=== PATIENT | female | born 1975 | race Caucasian/White ===

== ENCOUNTER 2022-02-20 20:59 | Emergency (ER) | payer OTHER ==
--- NOTE | 2022-02-20 21:02 | ERPHSYRPT ---
- History of Present Illness Time Seen by Provider: 02/20/22 21:02 Historian: patient Exam Limitations: no limitations Physician History: This is an obese 46-year-old white female who has known cholelithiasis and presents with right lateral abdomen and right upper quadrant pressure that was worsening over the last week. She has changed her diet and does feel more bloa verónica belching gassy. There is a family history of cholelithiasis that is symptomatic and they had undergone a cholecystectomy. Patient denies chest pain. She denies shortness of breath. She has had no nausea vomiting or diarrhea. Timing/Duration: day(s) (Several days) Activities at Onset: none Quality: pressure Abdominal Pain Onset Location: RUQ Pain Radiation: no radiation Severity of Pain-Max: mild Severity of Pain-Current: none Modifying Factors: Improves With: nothing Associated Symptoms: denies symptoms Previous symptoms: same symptoms as today, no recent treatment Allergies/Adverse Reactions: No Known Drug Allergies Allergy (Verified 02/20/22 21:09) Home Medications: Fluticasone Propionate [Flonase NASAL] 1 spray INTRANASAL DAILY 02/20/22 [History] Lisinopril 10 mg [Zestril 10 MG] 1 tab PO DAILY 02/20/22 [History] Loratadine 10 mg [Claritin 10 mg] 1 tab PO DAILY 02/20/22 [History] Travel Risk - International Travel Have you traveled outside of the country in past 3 weeks: No - Coronavirus Screening Are you exhibiting any of the following symptoms?: No Close contact with a COVID-19 positive Pt in past 14-21 Days: No - Review of Systems Constitutional: No Symptoms Eyes: No Symptoms Ears, Nose, & Throat: No Symptoms Respiratory: No Symptoms Cardiac: No Symptoms Abdominal/Gastrointestinal: Abdominal Pain (Described as a pressure that it has now resolved. Location is right upper quadrant and right lateral abdomen), Other (Bloated belching gassy), No Nausea, No Vomiting, No Diarrhea Genitourinary Symptoms: No Symptoms Musculoskeletal: No Symptoms Skin: No Symptoms Neurological: No Symptoms Psychological: No Symptoms Endocrine: No Symptoms Hematologic/Lymphatic: No Symptoms Immunological/Allergic: No Symptoms All Other Systems: Reviewed and Negative - Past Medical History Pertinent Past Medical History: Yes - Past Surgical History Past Surgical History: Yes Gastrointestinal: Appendectomy - Nursing Vital Signs Nursing Vital Signs: Initial Vital Signs Temperature 98.4 F 02/20/22 21:14 Pulse Rate 94 H 02/20/22 21:14 Respiratory Rate 20 02/20/22 21:14 Blood Pressure 176/98 02/20/22 21:14 O2 Sat by Pulse Oximetry 100 02/20/22 21:14 Pain Scale Pain Intensity [Right lower 0 back] Pain Intensity 0 - Physical Exam General Appearance: no apparent distress, alert, anxiety, obese Eye Exam: PERRL/EOMI, eyes nml inspection Ears, Nose, Throat Exam: normal ENT inspection, moist mucous membranes Neck Exam: normal inspection, non-tender, supple, full range of motion Respiratory Exam: normal breath sounds, lungs clear, airway intact, No chest tenderness, No respiratory distress Cardiovascular Exam: regular rate/rhythm, normal heart sounds, normal peripheral pulses Gastrointestinal/Abdomen Exam: soft, normal bowel sounds, tenderness (Described as a pressure right lateral abdomen and right upper quadrant), No guarding, No rebound Pelvic Exam: not done Rectal Exam: not done Back Exam: normal inspection, normal range of motion, No CVA tenderness, No vertebral tenderness Extremity Exam: normal inspection, normal range of motion, pelvis stable Neurologic Exam: alert, oriented x 3, cooperative, 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, normal mood/affect, nml cerebellar function, nml station & gait, sensation nml Skin Exam: normal color, warm, dry Lymphatic Exam: No adenopathy SpO2 Interpretation: normal O2 Delivery: Room Air - Course Nursing assessment & vital signs reviewed: Yes Ordered Tests: Active Orders 24 hr Category Date Time Status IV Insertion STAT Care 02/20/22 21:35 Active ABDOMEN AND PELVIS W/0 CONTRAS [CT] Stat Exams 02/20/22 21:34 Taken AMYLASE Stat Lab 02/20/22 21:52 Completed CBC W DIFF Stat Lab 02/20/22 21:33 Completed CMP Stat Lab 02/20/22 21:52 Completed CULTURE,URINE Stat Lab 02/20/22 21:35 Received LIPASE Stat Lab 02/20/22 21:52 Completed Lactic Acid Stat Lab 02/20/22 21:49 Completed Lab/Rad Data: Laboratory Result Diagrams 02/20/22 21:33 02/20/22 21:52 Laboratory Results 02/20/22 02/20/22 02/20/22 Range/Units 21:52 21:52 21:49 WBC (4.0-10.5) K/mm3 RBC (4.1-5.4) M/mm3 Hgb (12.0-16.0) gm/dl Hct (35-47) % MCV (78-100) fl MCH (26-32) pg MCHC (32-36) g/dl RDW (11.5-14.0) % Plt Count (150-450) K/mm3 MPV (7.5-11.0) fl Gran % (36.0-66.0) % Eos # (Auto) (0-0.5) Absolute Lymphs (auto) (1.0-4.6) Absolute Monos (auto) (0.0-1.3) Lymphocytes % (24.0-44.0) % Monocytes % (0.0-12.0) % Eosinophils % (0.00-5.0) % Basophils % (0.0-0.4) % Absolute Granulocytes (1.4-6.9) Basophils # (0-0.4) Sodium 138 (137-145) mmol/L Potassium 3.7 (3.5-5.1) mmol/L Chloride 100 (98-107) mmol/L Carbon Dioxide 27 (22-30) mmol/L Anion Gap 15.1 H (5-15) MEQ/L BUN 9 (7-17) mg/dL Creatinine 0.69 (0.52-1.04) mg/dL Estimated GFR > 60.0 ML/MIN Glucose 90 (74-106) mg/dL Hemoglobin A1c 5.49 (4.5-6.0) % Lactic Acid 1.0 (0.4-2.0) Calcium 9.9 (8.4-10.2) mg/dL Total Bilirubin 0.90 (0.2-1.3) mg/dL AST 21 (14-36) U/L ALT 26 (0-35) U/L Alkaline Phosphatase 60 (38-126) U/L Serum Total Protein 7.4 (6.3-8.2) g/dL Albumin 4.6 (3.5-5.0) g/dL Amylase 53 (30-110) U/L Lipase 90 (23-300) U/L Urinalys Dipstick Clnc Urine Color (YELLOW) Urine Appearance (CLEAR) Urine pH (5-6) Ur Specific [place] (1.005-1.025) POC Urine Protein Conf (Negative) Urine Ketones (NEGATIVE) Urine Nitrite (NEGATIVE) Urine Bilirubin (NEGATIVE) Urine Urobilinogen (0-1) mg/dL Urine Leukocytes (NEGATIVE) Urine WBC (Auto) (0-5) /HPF Urine RBC (Auto) (0-2) /HPF U Epithel Cells (Auto) (FEW) /HPF Urine Bacteria (Auto) (NEGATIVE) /HPF Urine RBC (0-5) Santos/ul Urine Mucus (Auto) (NEGATIVE) /HPF Ur Culture Indicated? Urine Glucose (NEGATIVE) mg/dL 02/20/22 02/20/22 Range/Units 21:35 21:33 WBC 10.9 H (4.0-10.5) K/mm3 RBC 5.13 (4.1-5.4) M/mm3 Hgb 14.3 (12.0-16.0) gm/dl Hct 43.1 (35-47) % MCV 84.0 (78-100) fl MCH 27.9 (26-32) pg MCHC 33.2 (32-36) g/dl RDW 14.2 H (11.5-14.0) % Plt Count 332 (150-450) K/mm3 MPV 11.8 H (7.5-11.0) fl Gran % 47.0 (36.0-66.0) % Eos # (Auto) 0.33 (0-0.5) Absolute Lymphs (auto) 4.39 (1.0-4.6) Absolute Monos (auto) 1.05 (0.0-1.3) Lymphocytes % 40.1 (24.0-44.0) % Monocytes % 9.6 (0.0-12.0) % Eosinophils % 3.0 (0.00-5.0) % Basophils % 0.3 (0.0-0.4) % Absolute Granulocytes 5.14 (1.4-6.9) Basophils # 0.03 (0-0.4) Sodium (137-145) mmol/L Potassium (3.5-5.1) mmol/L Chloride (98-107) mmol/L Carbon Dioxide (22-30) mmol/L Anion Gap (5-15) MEQ/L BUN (7-17) mg/dL Creatinine (0.52-1.04) mg/dL Estimated GFR ML/MIN Glucose (74-106) mg/dL Hemoglobin A1c (4.5-6.0) % Lactic Acid (0.4-2.0) Calcium (8.4-10.2) mg/dL Total Bilirubin (0.2-1.3) mg/dL AST (14-36) U/L ALT (0-35) U/L Alkaline Phosphatase (38-126) U/L Serum Total Protein (6.3-8.2) g/dL Albumin (3.5-5.0) g/dL Amylase (30-110) U/L Lipase (23-300) U/L Urinalys Dipstick Clnc MAIN LAB Urine Color YELLOW (YELLOW) Urine Appearance SLIGHTLY CLOUDY (CLEAR) Urine pH 5.5 (5-6) Ur Specific [place] 1.015 (1.005-1.025) POC Urine Protein Conf NEGATIVE (Negative) Urine Ketones NEGATIVE (NEGATIVE) Urine Nitrite NEGATIVE (NEGATIVE) Urine Bilirubin NEGATIVE (NEGATIVE) Urine Urobilinogen 0.2 (0-1) mg/dL Urine Leukocytes NEGATIVE (NEGATIVE) Urine WBC (Auto) 0-2 (0-5) /HPF Urine RBC (Auto) 0-2 (0-2) /HPF U Epithel Cells (Auto) FEW (FEW) /HPF Urine Bacteria (Auto) MANY (NEGATIVE) /HPF Urine RBC NEGATIVE (0-5) Santos/ul Urine Mucus (Auto) SLIGHT (NEGATIVE) /HPF Ur Culture Indicated? YES Urine Glucose NEGATIVE (NEGATIVE) mg/dL - Progress Progress: unchanged Progress Note: 02/20/22 23:01 CAT scan of the abdomen pelvis shows 2 cm gallstone with the remaining CAT scan of the abdomen without contrast negative Counseled pt/family regarding: lab results, diagnosis, need for follow-up, rad results - Departure Departure Disposition: Home Clinical Impression: Cholelithiasis Condition: Stable Critical Care Time: No Referrals: JESSA TAYLOR NP [Primary Care Provider] - Follow up/PCP as directed Additional Instructions: Drink plenty of fluids. Avoid fatty, greasy, spicy foods. Follow-up as an outpatient with your primary prescribing provider for further evaluation and management of your gallbladder and gallstones.
[2022-02-20 21:50] LABS: Absolute Neutrophil Ct (ANC) 5.14 (1.4-6.9); Basophil (Absolute #) 0.03 (0-0.4); Eosinophil (Absolute #) 0.33 (0-0.5); Hematocrit 43.1 % (35-47); Hemoglobin 14.3 gm/dl (12.0-16.0); Lymphocyte (Absolute #) 4.39 (1.0-4.6); Lymphocytes % 40.1 % (24.0-44.0); Mean Corpuscular Hemoglobin 27.9 pg (26-32); Mean Corpuscular Hgb Concent. 33.2 g/dl (32-36); Mean Platelet Volume 11.8 fl (7.5-11.0); Monocyte (Absolute #) 1.05 (0.0-1.3); Monocytes % 9.6 % (0.0-12.0); Platelet Count 332 K/mm3 (150-450); Red Blood Count 5.13 M/mm3 (4.1-5.4); Red Cell Distribution Width 14.2 % (11.5-14.0); White Blood Count 10.9 K/mm3 (4.0-10.5)
[2022-02-20 21:56] LABS: Bacteria MANY /HPF (NEGATIVE); Epithelial Cells FEW /HPF (FEW); Mucus SLIGHT /HPF (NEGATIVE); RBC 0-2 /HPF (0-2); WBC 0-2 /HPF (0-5)
[2022-02-20 21:57] LABS: Appearance SLIGHTLY CLOUDY (CLEAR); Bilirubin NEGATIVE (NEGATIVE); Glucose NEGATIVE (NEGATIVE); Ketones NEGATIVE (NEGATIVE); Nitrite NEGATIVE (NEGATIVE); Ph 5.5 (5-6); Protein,Urine Dip NEGATIVE (Negative); RBC NEGATIVE Ery/ul (0-5); Specific Gravity 1.015 (1.005-1.025); Urine Cultured Indicated? YES; Urobilinogen 0.2 mg/dL (0-1)
[2022-02-20 22:02] LABS: ALBUMIN 4.6 g/dL (3.5-5.0); ALKALINE PHOSPHATASE 60 U/L (38-126); AMYLASE 53 U/L (30-110); ANION GAP 15.1 MEQ/L (5-15); BLOOD UREA NITROGEN 9 mg/dL (7-17); CHLORIDE 100 mmol/L (98-107); Calcium 9.9 mg/dL (8.4-10.2); Carbon Dioxide 27 mmol/L (22-30); Creatinine 1 0.69 mg/dL (0.52-1.04); EST GLOMERULAR FILTRATION RATE > 60.0 ML/MIN; Glucose 90 mg/dL (74-106); LIPASE 90 U/L (23-300); Potassium 3.7 mmol/L (3.5-5.1); SGOT/AST 21 U/L (14-36); SGPT/ALT 26 U/L (0-35); SODIUM 138 mmol/L (137-145); Total Protein 7.4 g/dL (6.3-8.2)
[2022-02-20 22:06] LABS: Dipstick done @ ? MAIN LAB
[2022-02-20 23:06] VITALS: BP 166/87; PULSE 84; O2SAT 98
--- NOTE | 2022-02-21 08:55 | XRAY ---
Indication: Right upper quadrant pain. Multiple contiguous axial images obtained through the abdomen and pelvis without contrast. Comparison: None Lung bases clear. Heart not enlarged. Stomach distended with food/fluid. Noncontrasted stomach and bowel loops appear nonobstructed. Appendectomy and hysterectomy reported. No free fluid/air. Gallbladder partially contracted with 2 cm stone. Remaining liver, gallbladder, pancreas, spleen, adrenal glands, kidneys, ureters, bladder, and aorta are unremarkable for noncontrast exam. Osseous structures intact with minimal degenerative changes throughout the spine. No ventral or inguinal hernias. Impression: 1. Gallstone better evaluated with sonogram if clinically warranted. 2. Remaining CT abdomen/pelvis without contrast exam is negative.
== END 2022-02-20 23:17 | disposition home or self-care (01) ==
LOC: ED 20:59
DX: K80.20 Calculus of gallbladder without cholecystitis without obstruction (principal); R10.11 Right upper quadrant pain; Z79.899 Other long term (current) drug therapy
CPT/HCPCS: 36000; 36415; 74176; 80053; 81015; 82150; 83036; 83605; 83690; 85025; 87086; 99284

== ENCOUNTER 2022-03-13 10:07 | Day surgery (SDC) | payer OTHER ==
--- NOTE | 2022-03-13 09:43 | HP ---
DATE OF SURGERY: 03/13/2022 HISTORY OF PRESENT ILLNESS: The patient is a 46-year-old with no change in bowel movements, no jaundice. History of gallstones in the past. She had some chronic cholecystitis and cholelithiasis. The patient did have irritable bowel disease test that was negative for irritable bowel disease in the past. CT scan showed gallbladder contracted with 2 cm stone. PAST MEDICAL HISTORY: Hypertension. PAST SURGICAL HISTORY: Appendectomy. Tubal. Hysterectomy. MEDICATIONS: Lisinopril, Claritin, Flonase. ALLERGIES: NKDA. SOCIAL HISTORY: No smoking or alcohol abuse. REVIEW OF SYSTEMS: Fourteen systems reviewed. No chest pain or palpitations. Other systems negative or noncontributory as above and per preadmission questionnaire. PHYSICAL EXAMINATION: GENERAL: No acute distress. HEENT: Sclerae nonicteric. NECK: No JVD. CHEST: Equal excursion, nonlabored breathing. CVS: Regular rate and rhythm. ABDOMEN: Soft. No peritoneal signs. EXTREMITIES: No significant edema. NEURO: Alert, oriented, moving extremities symmetrically. PSYCH: Appropriate mood and affect. IMPRESSION: Chronic cholecystitis, symptomatic cholelithiasis. I feel the patient will benefit from cholecystectomy. She was shown the gallbladder pamphlet and risk sheet, explained the procedure in detail including but not limited to bleeding or infection, risk of trocar injury or hernia, risk of bowel, bladder or blood vessel injury, risk of bile leak, bile duct injury, retained stone or sludge possibly requiring further procedure either open or ERCP, general risk of anesthesia, deep venous thrombosis, pulmonary embolism, pneumonia, perioperative risk of aches, pains, bloating, constipation and/or loose stools possibly even chronic in nature, general risk of anesthesia or sedation, risk of possible open procedure, possibility this procedure may not improve her symptoms. She may need endoscopy, other studies or procedures. She understands and agrees to the planned procedure, will proceed with laparoscopic cholecystectomy with possible open as an outpatient.
[~2022-03-13 10:07] MED LIST: Lactated Ringers 1,000 ML IV ONE; Lactated Ringers 1,000 ML IV SCH; Sensorcaine 0.25% 10 ML ONE
[2022-03-13] MEDS ORDERED: DEXMEDETOMIDINE 80 MCG/20ML-NS IV ONE (10:08)
[2022-03-13] MEDS ORDERED: Pepcid 20 MG VIAL IV ONE (10:54)
[2022-03-13] MEDS ORDERED: Transderm Scop 1.5MG Patch TOP PRN (10:54)
[2022-03-13] MEDS ORDERED: Reglan 10 MG/2 ML IV ONE (10:54)
[2022-03-13] MEDS ORDERED: Lactated Ringers 1,000 ML IV ONE (10:57)
[2022-03-13] MEDS ORDERED: MEFOXIN 2 GM PREMIX** 2 GM/50 ML ML IV SCH (11:00)
[2022-03-13] MEDS ORDERED: Versed 2 MG/2 ML Injection IV PRN (11:34)
[2022-03-13] MEDS ORDERED: Versed 2 MG/2 ML Injection ONE ×2 (11:35→12:19)
[2022-03-13] MEDS ORDERED: DIPRIVAN 200 MG/20 ML IV ONE (12:19)
[2022-03-13] MEDS ORDERED: Zemuron 100 MG/10 ML ONE ×2 (12:19→13:47)
[2022-03-13] MEDS ORDERED: Decadron 4 MG INJ ONE (12:19)
[2022-03-13] MEDS ORDERED: SUBLIMAZE 100 MCG/2 ML ONE ×3 (12:19→15:12)
[2022-03-13] MEDS ORDERED: Xylocaine-Mpf 2% 5 Ml Vial ONE (12:19)
[2022-03-13] MEDS ORDERED: Zofran 4 MG/2 ML VIAL ONE (12:19)
[2022-03-13] MEDS ORDERED: Quelicin Fliptop 200 MG/10 ML ONE (12:19)
[2022-03-13] MEDS ORDERED: Pre-Attached Lta Kit TP ONE (12:24)
[2022-03-13] MEDS ORDERED: OFIRMEV 100 ML IV ONE (12:25)
[2022-03-13] MEDS ORDERED: NORCO 5/325 MG PO PRN (12:57)
[2022-03-13] MEDS ORDERED: ATROPINE SULFATE 1MG ONE (13:16)
[2022-03-13] MEDS ORDERED: BRIDION 200MG/2ML IV ONE (14:50)
--- NOTE | 2022-03-13 15:28 | OP ---
SURGERY DATE/TIME: 03/13/2022 1232 PREOPERATIVE DIAGNOSIS: Acute exacerbation of chronic cholecystitis, cholelithiasis, obesity. POSTOPERATIVE DIAGNOSIS: Acute exacerbation of chronic cholecystitis, cholelithiasis, obesity. PROCEDURE: Laparoscopic cholecystectomy. SURGEON: Dr. Gadiel Rivera. ANESTHESIA: General. ESTIMATED BLOOD LOSS: Minimal. INDICATIONS: As noted above. Risks and benefits explained in detail but not limited to and consent obtained. DESCRIPTION OF PROCEDURE AND FINDINGS: The patient was taken to the operating room. General anesthesia induced. Abdomen prepped and draped in the usual sterile fashion. After official time out and no disagreement with planned procedure, a transverse incision made at the supraumbilical area. Fascia grasped and pulled upward. Veress needle inserted and tested with saline. Pneumoperitoneum accomplished insufflating opening pressure of 0-15. A 5 mm bladeless port and camera inserted without difficulty followed by two - 5 mm right upper quadrant ports and 11 mm epigastric port was later switched to a 12 mm port. There is no evidence of any intra-abdominal injury secondary to trocar insertion. The gallbladder showed fatty infiltration to the liver and the gallbladder was quite intrahepatic. It was stuck with lobulation. This took quite some time to dissect posterior lateral to anterior fashion. Layer by layer slow, careful safe dissection finally able to obtain a critical view of the infundibular cystic duct junction area this is slowly and carefully well skeletonized until critical view obtained. The artery in this particular patient was more out laterally. Once the critical view was obtained and after first taking the artery directly on the gallbladder wall it is clipped x3 and divided. The infundibular area is carefully dissected free allowing the cystic duct to be well skeletonized and critical view obtained anterior and posteriorly. Once this is accomplished given her inflammatory reaction, it was felt more secure with the EndoGIA stapler vascular load was carefully angulated and fired across at the junction at the infundibular cystic duct area. The patient had a very large stone in the fundal part of the gallbladder but there were no palpable stones in this area. The gallbladder was slowly and carefully layer by layer dissected free from the liver bed. Some pinpoint brief bursts of cautery and small lymphatics and oozing venules going into the liver as necessary, carefully dissected directly on the gallbladder wall itself. Just prior to releasing from final attachments, the grasper tore a small hole spilling a small amount of bile this is suctioned irrigated as clear as possible. The gallbladder was slowly and carefully dissected free. Just prior to releasing from final attachments to the anterior edge of the liver, the liver bed re-inspected. Staple line intact. Cystic duct stump and cystic artery clips in place. No signs of any active bleeding or bile leakage at this point. Earlier prior to placement of the ports, LigaSure device had taken down some omental adhesions to allow for placement of the ports at the beginning of the case. Good hemostasis noted. Gallbladder was released from final attachments anterior edge of the liver, placed in provided sac. This fascia defect slightly enlarged with a clamp so the bag and gallbladder with large stone is pulled free and passed off. Because of the extensive inflammatory reaction and intrahepatic nature of this gallbladder and difficult dissection, it is felt safest to reduce risk of collection formation for a temporary JEANA drain 10 flat was placed subhepatic space out through lateral port incision and secured with PDS suture and placed to bulb suction. At this point 12 mm fascial defect closed with puncture closure device with #1 Vicryl. The wound irrigated out. Gallbladder bed irrigated out. Lateral to the liver irrigated out until clear. Good hemostasis noted. Pneumoperitoneum decompressed. Wound irrigated out. Skin incision closed with 4-0 Vicryl. Steri-Strips and sterile dressing applied. 0.25% Marcaine local injected along the skin incision fascial defect at the beginning of the procedure. There were no immediate complications. Findings discussed with the family out in the waiting area.
[2022-03-13 15:52] VITALS: O2SAT 94
[2022-03-13 16:48] VITALS: BP 155/88; PULSE 75
== END 2022-03-13 16:30 | disposition home or self-care (01) ==
LOC: SDC 10:07
PROVIDERS: ATTEND Surgery
DX: K80.10 Calculus of gallbladder with chronic cholecystitis without obstruction (principal); E66.9 Obesity, unspecified
CPT/HCPCS: J0330; J0461; J0694; J1100; J2250; J2405; J2704; J3010; A9270-GY

== ENCOUNTER 2025-01-11 13:34 | Emergency (ER) | payer SELFPAY ==
[2025-01-11 14:16] VITALS: PULSE 78; TEMP 98.9; O2SAT 100
--- NOTE | 2025-01-11 14:18 | ERPHSYRPT ---
- History of Present Illness Time Seen by Provider: 01/11/25 14:18 Source: patient Exam Limitations: no limitations Patient Subjective Stated Complaint: pt c/o of cough, congestion, and fever since Sunday, fever broke on Triage Nursing Assessment: Pt was brought to the ER by her , hypertensive, denies pain, pulses normal, skin n/w/d, no difficulty breathing, denies chest pain, doesn't appear to be in any distress Allergies/Adverse Reactions: No Known Drug Allergies Allergy (Verified 01/11/25 14:16) Home Medications: Lisinopril 20 mg [Zestril 20 MG] 40 mg PO DAILY 03/06/22 [History] Amlodipine Besylate 2.5 mg PO DAILY 01/11/25 [History] hydroCHLOROthiazide [Hydrochlorothiazide] 12.5 mg PO DAILY 01/11/25 [History] Hx Tetanus, Diphtheria Vaccination/Date Given: No (unsure tetanus) Hx Influenza Vaccination/Date Given: No Hx Pneumococcal Vaccination/Date Given: No Travel Risk - International Travel Have you traveled outside of the country in past 3 weeks: No - Emerging Infectious Disease Are you exhibiting symptoms associated with any current EIDs: Yes Symptoms: Cough: New Onset, Fever - Past Medical History Pertinent Past Medical History: Yes Neurological History: No Pertinent History ENT History: No Pertinent History Cardiac History: Hypertension Respiratory History: No Pertinent History Endocrine Medical History: No Pertinent History Musculoskeletal History: No Pertinent History GI Medical History: No Pertinent History History: No Pertinent History Psycho-Social History: No Pertinent History Female Reproductive Disorders: No Pertinent History Other Medical History: Allergies, gall stones - Past Surgical History Past Surgical History: Yes Neuro Surgical History: No Pertinent History Cardiac: No Pertinent History Respiratory: No Pertinent History Gastrointestinal: Appendectomy Genitourinary: No Pertinent History Musculoskeletal: No Pertinent History Female Surgical History: Hysterectomy, Tubal Ligation Other Surgical History: Reports vomited after appendectomy but states appendix has luiz 3 days prior to surgery. - Female History Hx Now: No (hysterectomy) - Social History Smoking Status: Former smoker Exposure to second hand smoke: No Drug Use: none - Social Determinants of Health Will the patient participate in the screening: Yes Do you worry about a steady place to live?: No Do you have any problems with any of the following?: No known problems In the past 12 months,have you had to go without utilities?: No Transportation Issues: No Has anyone in your support network made you feel unsafe?: No Have you or anyone in your house had to go w/o enough food: No - Nursing Vital Signs Nursing Vital Signs: Initial Vital Signs Temperature 98.9 F 01/11/25 14:07 Pulse Rate 78 01/11/25 14:07 Blood Pressure 165/79 01/11/25 14:07 O2 Sat by Pulse Oximetry 100 01/11/25 14:07 Pain Scale Pain Intensity 0 - Physical Exam SpO2: 100 Ordered Tests: Active Orders 24 hr Category Date Time Status CHEST 1 VIEW (PORTABLE) Stat Exams 01/11/25 15:35 Taken Lab/Rad Data: Laboratory Results 01/11/25 Range/Units 14:31 Influenza Type A Ag NEGATIVE (NEGATIVE) Influenza Type B Ag NEGATIVE (NEGATIVE) RSV (PCR) NEGATIVE (NEGATIVE) SARS-CoV-2 (PCR) NEGATIVE (NEGATIVE) - Departure Departure Disposition: Home Clinical Impression: Pneumonia Condition: Good Critical Care Time: No Referrals: JESSA TAYLOR NP [NON-STAFF PHY W/O PRIVILEGES] - Follow up/PCP as directed Instructions: Pneumonia, Adult (DC) Prescriptions: Amox Tr/Potass Clav. 875 mg [Augmentin 875-125 Tablet] 875 mg PO BID 7 Days #13 tablet
[2025-01-11 15:10] LABS: INFLUENZA A NEGATIVE (NEGATIVE); INFLUENZA B NEGATIVE (NEGATIVE); RESPIRATORY SYNCTIAL VIRUS NEGATIVE (NEGATIVE); SARS-CoV-2 Xpert Express NEGATIVE (NEGATIVE)
[2025-01-11] MEDS ORDERED: Augmentin 875-125 Tablet ONE (16:08)
[2025-01-11] MEDS: Augmentin 875-125 Tablet PO ONE (16:08)
[2025-01-11 16:10] VITALS: BP 143/80
--- NOTE | 2025-01-11 19:06 | XRAY ---
Indication: Short of breath. Comparison: None Portable chest demonstrates patchy lingula infiltrate/atelectasis. Remaining heart and lungs unremarkable. Bony thorax intact.
== END 2025-01-11 16:14 | disposition home or self-care (01) ==
LOC: ED 13:34
DX: J18.9 Pneumonia, unspecified organism (principal); R05.1 Acute cough; R50.9 Fever, unspecified; I10 Essential (primary) hypertension; Z79.899 Other long term (current) drug therapy
CPT/HCPCS: 0241U; 71045; 99284; 99283; A9270-GY